=== PATIENT | male | born 1950 | race Caucasian/White ===

== ENCOUNTER 2021-12-23 10:21 | Observation (INO) ==
[~2021-12-23 10:21] MED LIST: Buffered Lidocaine 1% SYRIN 1 ml INTRADERM ONE; Dexamethasone IV 4 MG/ML VIAL 1 ml VIAL IV SLOW PU ONE; Famotidine IV 10 MG/ML 2 ml VIAL (20 mg) IV ONE; Lactated Ringers 1000 ml BAG 1,000 ML IV SCH
[2021-12-23 11:02] LABS: Activated Partial Thrombo Time 30.3 seconds (26.0-38.0); INR 1.09 (0.86-1.15)
[2021-12-23] MEDS ORDERED: ceFAZolin 2 GM in NS PREMIX 2 GM/100 ML BAG IVPB ONE (11:03)
[2021-12-23] MEDS ORDERED: Midazolam 2 mg/2 ml VIAL 1 mg/ml 2 ml VIAL (2 mg) ONE (11:08)
[2021-12-23] MEDS ORDERED: Dexamethasone IV 4 MG/ML VIAL 1 ml VIAL ONE (11:17)
[2021-12-23] MEDS ORDERED: Famotidine IV 10 MG/ML 2 ml VIAL (20 mg) ONE (11:17)
[2021-12-23] MEDS ORDERED: Naloxone 0.4 mg VIAL 0.4 mg/ml 1 ml VIAL IV PRN (11:55)
[2021-12-23] MEDS ORDERED: Prochlorperazine 5 mg/ml 2 ml VIAL (10 mg) IV PRN (11:55)
[2021-12-23] MEDS ORDERED: fentaNYL 250 mcg/5 ml 50 MCG/ML 5 ml VIAL (250 MCG) ONE (12:46)
[2021-12-23] MEDS ORDERED: Rocuronium 50 mg VIAL 10 mg/ml 5 ml VIAL (50 mg) ONE (12:46)
[2021-12-23] MEDS ORDERED: Phenylephrine 40 mcg/mL 10mL (400mcg) SYRINGE ONE (13:05)
[2021-12-23] MEDS ORDERED: Ondansetron 4 mg VIAL 2 MG/ML 2 ml VIAL ONE (13:33)
[2021-12-23] MEDS ORDERED: Morphine 2 MG/ML SYRINGE IV PRN (13:50)
[2021-12-23] MEDS ORDERED: Ondansetron ODT 4 mg TAB 4 MG TAB PO PRN (13:50)
[2021-12-23] MEDS ORDERED: Lactulose 30 ml UDC PO PRN (13:50)
[2021-12-23] MEDS ORDERED: Magnesium Hydroxide LIQ 30 ML UDC PO PRN (13:50)
[2021-12-23] MEDS ORDERED: Ondansetron 4 mg VIAL 2 MG/ML 2 ml VIAL IV PRN (13:50)
[2021-12-23] MEDS ORDERED: HYDROmorphone 0.5 MG/0.5 ML SYRINGE ONE (13:51)
[2021-12-23] MEDS ORDERED: fentaNYL 100 mcg/2 ml 50 MCG/ML VIAL ONE (16:17)
[2021-12-23] MEDS: fentaNYL 100 mcg/2 ml 50 MCG/ML VIAL IV PRN ×2 (16:18→16:32)
[2021-12-23] MEDS: Lactated Ringers 1000 ml BAG 1,000 ML IV SCH (18:39)
[2021-12-23] MEDS: Magnesium Hydroxide LIQ 30 ML UDC PO SCH (21:03)
[2021-12-23] MEDS: Clindamycin 600 MG/D5W BAG 600 MG/50 ML BAG IV SCH (21:03)
[2021-12-24 05:22] LABS: Hematocrit 30 % (42-52); Hemoglobin 9.8 g/dL (14.0-18.0); Mean Platelet Volume 6.7 fL (7.4-10.4); Platelet Count 186 10^3/uL (150-450)
[2021-12-24] MEDS: Lactated Ringers 1000 ml BAG 1,000 ML IV SCH (05:36)
[2021-12-24] MEDS: Clindamycin 600 MG/D5W BAG 600 MG/50 ML BAG IV SCH ×2 (05:37→12:43)
[2021-12-24 05:52] LABS: Calcium 8.5 mg/dL (8.6-10.3); eGFR CKD-EPI 49.2 (>60)
[2021-12-24 05:53] LABS: Potassium 5.1 mmol/L (3.5-5.0)
[2021-12-24 07:41] VITALS: BP 135/70
[2021-12-24] MEDS ORDERED: Vitamin THERAPEUTIC TAB PO SCH (09:00)
[2021-12-24] MEDS ORDERED: NON FORMULARY MED (Losartan-Hydrochlorothiazide 50-12.5 mg Tablet) PO SCH (09:00)
[2021-12-24] MEDS: Magnesium Hydroxide LIQ 30 ML UDC PO SCH (10:45)
== END 2021-12-24 13:55 | disposition home or self-care (01) ==
LOC: AA 10:21 → INTOOBSV 10:21 → SSU 17:22
PROVIDERS: ADMIT Orthopaedic Surgery Adult Reconstructive Orthopaedic Surgery; ATTEND Orthopaedic Surgery Adult Reconstructive Orthopaedic Surgery